=== PATIENT | male | born 1940 | race Caucasian/White ===

== ENCOUNTER 2021-05-10 20:03 | Emergency (ER) | payer OTHER ==
--- NOTE | 2021-05-10 21:34 | EDPHYS ---
Physician Documentation [facility] Name: Marcell Coy Age: 80 yrs Sex: Male : 1940 Arrival Date: 05/10/2021 Time: 20:57 Bed 17 Private MD: ED Physician Taj Bowie HPI: 05/10 21:27 This 80 yrs old Unknown Male presents to ER via Wheelchair with complaints of rn Hemorrhoids. 21:27 The patient presents to the emergency department with bleeding from the rectum/anus, rn that is mild. Onset: The symptoms/episode began/occurred 3 day(s) ago. Context: the patient has a known history of hemorrhoids. Modifying factors: The symptoms are alleviated by nothing, The symptoms are aggravated by bowel movement. Associate signs and symptoms: Pertinent positives: lower GI bleeding, Pertinent negatives: abdominal pain, fever. The patient has experienced similar episodes in the past. The patient has not recently seen a physician. Patient reports 3 days of intermittent hemorrhoidal bleeding. Has had hemorrhoids for very long time. States small amount of blood with bowel movement and wiping. Currently not bleeding. Usually able to stop it with toilet paper and pressure. Denies fever. On Xarelto.. 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 - Social history:: Smoking status: Patient denies any tobacco usage or history of. - Family history:: not pertinent. - Hospitalizations: : No recent hospitalization is reported. ROS: 21:27 Constitutional: Negative for fever, chills, and weight loss, Cardiovascular: Negative rn for chest pain, palpitations, and edema, Respiratory: Negative for shortness of breath, cough, wheezing, and pleuritic chest pain, Abdomen/GI: + bleeding from hemorrhoids Back: Negative for injury and pain, MS/Extremity: Negative for injury and deformity, Skin: Negative for injury, rash, and discoloration. Exam: 21:27 Constitutional: This is a well developed, well nourished patient who is awake, alert, rn and in no acute distress. Cardiovascular: Regular rate and rhythm. No pulse deficits. Respiratory: No increased work of breathing, no retractions or nasal flaring. Abdomen/GI: Soft, non-tender, multiple external hemorrhoids, none of which exhibit signs of thrombosis. No active bleeding, no tear or fissure. No evidence of perirectal abscess. Vital Signs: 21:03 Pulse 57; Resp 18; Temp 97.8; Pulse Ox 98% on R/A; Weight 93.44 kg; Height 5 ft. 10 in. zb (177.80 cm); 21:08 BP 182 / 85; zb 21:33 BP 209 / 87; Pulse 61; Resp 18; Temp 98.6; Pulse Ox 99% on R/A; sh9 21:45 BP 166 / 76; Pulse 65; Resp 18; Pulse Ox 99% on R/A; sh9 21:03 Body Mass Index 29.56 (93.44 kg, 177.80 cm) zb MDM: 21:09 Patient medically screened. rn 21:32 Differential diagnosis: hemorrhoids. Differential diagnosis: fissure. Data reviewed: rn vital signs, nurses notes. Data reviewed: and as a result, I will discharge patient. Counseling: I had a detailed discussion with the patient and/or guardian regarding: the historical points, exam findings, and any diagnostic results supporting the discharge/admit diagnosis, the need for outpatient follow up, to return to the emergency department if symptoms worsen or persist or if there are any questions or concerns that arise at home. Special discussion: I discussed with the patient/guardian in detail that at this point there is no indication for admission to the hospital. It is understood, however, that if the symptoms persist or worsen the patient needs to return immediately for re-evaluation. Based on the history and exam findings, there is no indication for further emergent testing or inpatient evaluation. I discussed with the patient/guardian the need to see the rfid strategist for further evaluation of the symptoms. ED course: No active bleeding from hemorrhoids. No thrombosis. Will prescribe hemorrhoidal cream and suppositories. Will follow up with GI.. Administered Medications: No medications were administered Disposition Summary: 05/10/21 21:33 Discharge Ordered Location: Home rn Problem: chronic rn Symptoms: have improved rn Condition: Stable rn Diagnosis - Unspecified hemorrhoids rn Followup: rn - With: Rodolfo Arzola MD - When: As needed - Reason: Recheck today's complaints, Re-evaluation by your physician Discharge Instructions: - Discharge Summary Sheet rn - Hemorrhoids rn Forms: - Medication Reconciliation Form rn - Thank You Letter rn - Antibiotic rn forensic - Prescription Opioid Use rn Prescriptions: - Anusol-HC 2.5 % Topical cream with perineal applicator - apply 1 applicatorful by TOPICAL route 2 times per day; 1 tube; Refills: 0, rn Product Selection Permitted - Anusol-HC 25 mg Rectal Suppository - insert 1 suppository by RECTAL route every 12 hours As needed; 20 suppository; rn Refills: 0, Product Selection Permitted Signatures: Taj Bowie MD MD rn Brown, Zipporah, RN RN zb
--- NOTE | 2021-05-10 21:34 | ER ---
Nurse's Notes [facility] Name: Marcell Coy Age: 80 yrs Sex: Male : 1940 Arrival Date: 05/10/2021 Time: 20:57 Bed 17 Private MD: Diagnosis: Unspecified hemorrhoids Presentation: 05/10 21:03 Chief complaint: Patient states: is having rectal bleeding from hemorrhoids, reports zb taking xarelto, also reports right sided neck pain that started last night, denies any trauma, reports feeling weak. Coronavirus screen: Vaccine status: Patient reports receiving the 2nd dose of the covid vaccine. Ebola Screen: Patient negative for fever greater than or equal to 101.5 degrees Fahrenheit, and additional compatible Ebola Virus Disease symptoms Patient denies exposure to infectious person. Patient denies travel to an Ebola-affected area in the 21 days before illness onset. No symptoms or risks identified at this time. Initial Sepsis Screen: Does the patient meet any 2 criteria? No. Patient's initial sepsis screen is negative. Does the patient have a suspected source of infection? No. Patient's initial sepsis screen is negative. Risk Assessment: Do you want to hurt yourself or someone else? Patient reports no desire to harm self or others. Onset of symptoms was May 10, 2021. 21:03 Method Of Arrival: Wheelchair zb 21:03 Acuity: TRISH 3 zb Triage Assessment: 21:33 General: Appears in no apparent distress. Behavior is calm, cooperative. Pain: sh9 Complains of pain in abdomen Pain currently is 6 out of 10 on a pain scale. 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 - Social history:: Smoking status: Patient denies any tobacco usage or history of. - Family history:: not pertinent. - Hospitalizations: : No recent hospitalization is reported. Screenin:37 Abuse screen: Denies threats or abuse. Denies injuries from another. Nutritional sh9 screening: No deficits noted. Tuberculosis screening: No symptoms or risk factors identified. Fall Risk None identified. Assessment: 21:36 General: Appears in no apparent distress. Behavior is calm, cooperative. Pain: sh9 Complains of pain in abdomen Pain currently is 6 out of 10 on a pain scale. Neuro: No deficits noted. Neuro: Denies weakness blurred vision dizziness, difficulty swallowing, paresthesias numbness headache photophobia diplopia. Cardiovascular: No deficits noted. Cardiovascular: Denies shortness of breath. Respiratory: No deficits noted. GI: Reports Pain is 6 out of 10 on a pain scale. Patient currently denies nausea, vomiting. GI: Reports rectal bleeding. : No deficits noted. EENT: No deficits noted. Derm: No deficits noted. Musculoskeletal: No deficits noted. Vital Signs: 21:03 Pulse 57; Resp 18; Temp 97.8; Pulse Ox 98% on R/A; Weight 93.44 kg; Height 5 ft. 10 in. zb (177.80 cm); 21:08 BP 182 / 85; zb 21:33 BP 209 / 87; Pulse 61; Resp 18; Temp 98.6; Pulse Ox 99% on R/A; sh9 21:45 BP 166 / 76; Pulse 65; Resp 18; Pulse Ox 99% on R/A; sh9 21:03 Body Mass Index 29.56 (93.44 kg, 177.80 cm) z ED Course: 20:57 Patient arrived in ED. 21:01 Taj Bowie MD is Attending Physician. rn 21:06 Triage completed. zb 21:06 Arm band placed on. b 21:14 Ada Christensen RN is Primary Nurse. sh9 21:33 Rodolfo Arzola MD is Referral Physician. rn 21:37 No provider procedures requiring assistance completed. sh9 21:38 Patient has correct armband on for positive identification. Bed in low position. Call 9 light in reach. 21:46 Patient did not have IV access during this emergency room visit. sh9 Administered Medications: No medications were administered Outcome: 21:33 Discharge ordered by . rn 21:45 Discharged to home ambulatory. sh9 21:45 Condition: stable 21:45 Discharge instructions given to patient, Prescriptions given X 2. 21:46 Patient left the ED. 9 Signatures: Taj Bowie MD MD rn Brown, Zipporah, RN RN Natty Dumont Christensen, Ada, RN RN sh9
[2021-05-10 21:53] VITALS: TEMP 98.6; O2SAT 99
[2021-05-10 21:55] VITALS: BP 166/76
== END 2021-05-10 21:46 | disposition home or self-care (01) ==
LOC: ER 20:03
DX: K64.9 Unspecified hemorrhoids (principal); I10 Essential (primary) hypertension; Z79.01 Long term (current) use of anticoagulants
CPT/HCPCS: 99282

== ENCOUNTER 2021-11-25 00:20 | Inpatient (IN) | payer OTHER ==
[2021-11-25 01:28] LABS: Absolute Lymphocytes (CBC) 1.3 K/uL (0.7-4.9); Hematocrit 36.5 % (39.6-49.0); Lymphocytes % 30.6 % (15.3-44.8); RBC Red Blood Cell Count 4.32 M/uL (4.33-5.43)
[2021-11-25 01:29] LABS: Protime INR 1.31
[2021-11-25 01:44] LABS: Albumin 3.2 g/dL (3.4-5.0); Bilirubin Direct 0.1 mg/dL (0-0.2); Bilirubin Total 0.4 mg/dL (0.2-1.0); Potassium 3.5 mmol/L (3.5-5.1); Protein, Total 7.1 g/dL (6.4-8.2); Troponin High Sensitivity 5.6 pg/mL (<58.9)
[2021-11-25 02:02] LABS: Urine Blood Negative (Negative); Urine Glucose Negative (Negative); Urine Protein Trace (Negative); Urine Specific Gravity 1.025 (1.005-1.030)
[2021-11-25 02:34] LABS: SARS-COV-2 RT PCR NEGATIVE (NEGATIVE)
--- NOTE | 2021-11-25 04:37 | ER ---
Nurse's Notes [facility] Name: Marcell Coy Age: 81 yrs Sex: Male : 1940 Arrival Date: 11/25/2021 Time: 00:20 Bed 17 Private MD: Diagnosis: Dizziness and giddiness;Disequilibrium syndrome;Essential (primary) hypertension Presentation: 11/25 00:29 Chief complaint: EMS states: high blood pressure since November 15, on 11/25 noted some sf1 disequilibrium. Disequilibrium has resolved. Coronavirus screen: Vaccine status: Patient reports receiving the 2nd dose of the covid vaccine. Client denies travel out of the [place] in the last 14 days. Ebola Screen: Patient negative for fever greater than or equal to 101.5 degrees Fahrenheit, and additional compatible Ebola Virus Disease symptoms Patient denies exposure to infectious person. Patient denies travel to an Ebola-affected area in the 21 days before illness onset. Initial Sepsis Screen: Does the patient meet any 2 criteria? No. Patient's initial sepsis screen is negative. Does the patient have a suspected source of infection? No. Patient's initial sepsis screen is negative. Risk Assessment: Do you want to hurt yourself or someone else? Patient reports no desire to harm self or others. Onset of symptoms was November 15, 2021. 00:29 Method Of Arrival: EMS sf1 00:29 Acuity: TRISH 3 sf1 Triage Assessment: 00:32 General: Appears in no apparent distress. Behavior is calm, cooperative. Pain: sf1 Complains of pain in left first toe and Left first toenail. EENT: No deficits noted. Neuro: No deficits noted. Cardiovascular: Reports elevated blood pressure. Respiratory: No deficits noted. GI: No deficits noted. : No deficits noted. 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 - Social history:: Smoking status: Patient denies any tobacco usage or history of. Patient/guardian denies using alcohol, street drugs. Screenin:37 Abuse screen: Denies threats or abuse. Nutritional screening: No deficits noted. sf1 Tuberculosis screening: No symptoms or risk factors identified. Fall Risk None identified. Assessment: 06:23 General: Appears in no apparent distress. Behavior is calm, cooperative, appropriate sf1 for age. 06:23 Reassessment: No changes from previously documented assessment. sf1 07:33 Reassessment: Attempted nurse report. Stated nurse is not yet available and will get ic1 back with me once she is available. Vital Signs: 00:29 BP 174 / 74; Pulse 58; Resp 22; Temp 99(O); Pulse Ox 94% on R/A; Weight 99.79 kg; sf1 Height 5 ft. 10 in. (177.80 cm); Pain 3/10; 01:24 BP 155 / 62; Pulse 63; Resp 16; Pulse Ox 98% on R/A; sf1 01:27 BP 192 / 71; Pulse 67; Resp 16; Pulse Ox 98% on R/A; sf1 01:31 BP 208 / 104; Pulse 73; Resp 22; Pulse Ox 98% ; sf1 02:06 BP 185 / 91; Pulse 60; Resp 16; sf1 06:26 BP 171 / 74; Pulse 62; Resp 18; Pulse Ox 98% on R/A; sf1 07:52 BP 127 / 64; Pulse 55; Resp 16; Pulse Ox 97% on R/A; ic1 00:29 Body Mass Index 31.57 (99.79 kg, 177.80 cm) sf1 ED Course: 00:20 Patient arrived in ED. wm 00:23 Alan Crow MD is Attending Physician. 7 00:28 Digna Barrera RN is Primary Nurse. sf1 00:32 Triage completed. sf1 00:32 Arm band placed on right wrist. EKG completed in triage. Results shown to MD. sf1 00:37 Patient has correct armband on for positive identification. sf1 00:37 Maintain EMS IV. Dressing intact. Good blood return noted. Site clean \\T\\ dry. Gauge \\T\\ sf 1 site: 20G right forearm. 00:38 Warm blanket given. sf1 01:18 PROBNP Sent. sf1 01:18 Protime (+inr) Sent. sf1 01:19 Ptt, Activated Sent. sf1 01:19 Magnesium Sent. sf1 01:19 Basic Metabolic Panel Sent. sf1 01:19 CBC with Diff Sent. sf1 01:19 LFT's Sent. sf1 01:19 Troponin HS Sent. sf1 01:26 CT Head Brain wo Cont In Process Unspecified. EDMS 01:55 XRAY Chest (1 view) In Process Unspecified. EDMS 01:55 Foot Right 3 View XRAY In Process Unspecified. EDMS 02:06 Urine Dipstick-Ancillary Sent. sf1 02:06 COVID-19/FLU A+B/RSV (Document "Date of Onset" if Symptomatic) Sent. sf1 04:34 Kirsten Mcbride MD is Hospitalizing Provider. 7 05:19 Hospitalizing Provider role handed off by Kirsten Mcbride MD [facility] 05:19 Prince Carlton MD is Hospitalizing Provider. 7 06:23 No provider procedures requiring assistance completed. sf1 Administered Medications: No medications were administered Outcome: 04:36 Decision to Hospitalize by Provider. [facility] 07:51 Admitted to Med/surg via stretcher, room 402, Report called to KENNY De La Cruz ic1 07:51 Condition: stable 07:51 Instructed on the need for admit. 08:39 Patient left the ED. ic1 Signatures: Dispatcher [employer] Alan Godfrey MD MD [facility] Natty Dumont Iesha, RN RN ic1 Digna Barrera RN RN sf1
--- NOTE | 2021-11-25 04:37 | EDPHYS ---
Physician Documentation [facility] Name: Marcell Coy Age: 81 yrs Sex: Male : 1940 Arrival Date: 11/25/2021 Time: 00:20 Bed 17 Private MD: ED Physician Alan Crow HPI: 11/25 01:01 This 81 yrs old Unknown Male presents to ER via EMS with complaints of High Blood mh7 Pressure. 01:01 The patient has elevated blood pressure and discovered this at home, with a home mh7 device. Onset: The symptoms/episode began/occurred 10 day(s) ago. Modifying factors: The symptoms are aggravated by nothing, The symptoms are alleviated by prescription meds, GUSTAVO-inhibitor, beta-tim, hydrochlorothiazide. Associated signs and symptoms: Pertinent positives: dizziness, lightheadedness, Pertinent negatives: chest pain, dyspnea, headache, nausea, visual changes, vomiting, weakness. Severity of symptoms: At its worst the blood pressure was 200 mm Hg, in the emergency department the blood pressure is improved, markedly, 154 mm Hg. 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 - Social history:: Smoking status: Patient denies any tobacco usage or history of. Patient/guardian denies using alcohol, street drugs. ROS: 01:01 Constitutional: Negative for fever, chills, and weight loss, Eyes: Negative for injury, mh7 pain, redness, and discharge, ENT: Negative for injury, pain, and discharge, Neck: Negative for injury, pain, and swelling, Cardiovascular: Negative for chest pain, palpitations, and edema, Respiratory: Negative for shortness of breath, cough, wheezing, and pleuritic chest pain, Abdomen/GI: Negative for abdominal pain, nausea, vomiting, diarrhea, and constipation, Back: Negative for injury and pain, : Negative for injury, bleeding, discharge, and swelling, MS/Extremity: Negative for injury and deformity, Skin: Negative for injury, rash, and discoloration, Neuro: Negative for headache, weakness, numbness, tingling, and seizure, Psych: Negative for depression, anxiety, suicide ideation, homicidal ideation, and hallucinations, Allergy/Immunology: Negative for hives, rash, and allergies, Endocrine: Negative for neck swelling, polydipsia, polyuria, polyphagia, and marked weight changes, Hematologic/Lymphatic: Negative for swollen nodes, abnormal bleeding, and unusual bruising. Exam: 01:01 Constitutional: This is a well developed, well nourished patient who is awake, alert, mh7 and in no acute distress. Head/Face: Normocephalic, atraumatic. Eyes: Pupils equal round and reactive to light, extra-ocular motions intact. Lids and lashes normal. Conjunctiva and sclera are non-icteric and not injected. Cornea within normal limits. Periorbital areas with no swelling, redness, or edema. Neck: Trachea midline, no thyromegaly or masses palpated, and no cervical lymphadenopathy. Supple, full range of motion without nuchal rigidity, or vertebral point tenderness. No Meningismus. Chest/axilla: Normal chest wall appearance and motion. Nontender with no deformity. No lesions are appreciated. 01:01 Respiratory: Lungs have equal breath sounds bilaterally, clear to auscultation and percussion. No rales, rhonchi or wheezes noted. No increased work of breathing, no retractions or nasal flaring. Abdomen/GI: Soft, non-tender, with normal bowel sounds. No distension or tympany. No guarding or rebound. No evidence of tenderness throughout. Back: No spinal tenderness. No costovertebral tenderness. Full range of motion. Skin: Warm, dry with normal turgor. Normal color with no rashes, no lesions, and no evidence of cellulitis. Psych: Awake, alert, with orientation to person, place and time. Behavior, mood, and affect are within normal limits. 01:01 Cardiovascular: Rate: bradycardic, Rhythm: regular, Pulses: no pulse deficits are appreciated, Heart sounds: normal, normal S1and S2, Edema: is not appreciated, JVD: is not appreciated. 01:01 Neuro: Orientation: is normal, Mentation: is normal, Memory: is normal, Cranial nerves: grossly normal, Cerebellar function: is grossly normal, Motor: is normal, Sensation: is normal, Gait: not tested. Deep tendon reflexes are normal, Babinski testing is normal, seizure activity, is not displayed by the patient, Abnormal movements: there are no abnormal movements. 01:01 ECG was reviewed by the Attending Physician. [facility] Vital Signs: 00:29 BP 174 / 74; Pulse 58; Resp 22; Temp 99(O); Pulse Ox 94% on R/A; Weight 99.79 kg; sf1 Height 5 ft. 10 in. (177.80 cm); Pain 3/10; 01:24 BP 155 / 62; Pulse 63; Resp 16; Pulse Ox 98% on R/A; sf1 01:27 BP 192 / 71; Pulse 67; Resp 16; Pulse Ox 98% on R/A; sf1 01:31 BP 208 / 104; Pulse 73; Resp 22; Pulse Ox 98% ; sf1 02:06 BP 185 / 91; Pulse 60; Resp 16; sf1 06:26 BP 171 / 74; Pulse 62; Resp 18; Pulse Ox 98% on R/A; sf1 07:52 BP 127 / 64; Pulse 55; Resp 16; Pulse Ox 97% on R/A; ic1 00:29 Body Mass Index 31.57 (99.79 kg, 177.80 cm) sf1 MDM: 04:34 Differential diagnosis: hypertensive crisis, Malignant HTN, CVA, intracerebral mh7 hemorrhage. Data reviewed: vital signs, nurses notes, EMS record, old medical records, lab test result(s), cardiac enzymes, CBC, electrolytes, Flu: negative urinalysis, EKG, radiologic studies, CT scan, plain films. Data interpreted: Pulse oximetry: on room air is 98 %. Interpretation: normal. Counseling: I had a detailed discussion with the patient and/or guardian regarding: the historical points, exam findings, and any diagnostic results supporting the discharge/admit diagnosis, the presence of at least one elevated blood pressure reading (>120/80) during this emergency department visit, lab results, radiology results, the need for further work-up and treatment in the hospital. Response to treatment: the patient's symptoms have mildly improved after treatment. 04:36 Patient medically screened. [facility] 11/25 01:00 Order name: Basic Metabolic Panel; Complete Time: 53 [facility] 11/25 01:00 Order name: CBC with Diff; Complete Time: [facility] 11/25 01:00 Order name: LFT's; Complete Time: : [facility] 11/25 01:00 Order name: Troponin HS; Complete Time: [facility] 11/25 01:00 Order name: Magnesium; Complete Time: [facility] 11/25 01:00 Order name: Protime (+inr); Complete Time: : [facility] 11/25 01:00 Order name: XRAY Chest (1 view) [facility] 11/25 01:00 Order name: EKG; Complete Time: : [facility] 11/25 01:00 Order name: Ptt, Activated; Complete Time: [facility] 11/25 01:00 Order name: PROBNP; Complete Time: [facility] 11/25 01:01 Order name: Foot Right 3 View XRAY [facility] 11/25 01:01 Order name: CT Head Brain wo Cont [facility] 11/25 01:06 Order name: COVID-19/FLU A+B/RSV (Document "Date of Onset" if Symptomatic); Complete [facility] Time: 11/25 02:02 Order name: Urine Dipstick-Ancillary [facility] 11/25 01:00 Order name: Cardiac monitoring; Complete Time: 01:00 [facility] 11/25 01:00 Order name: EKG - Nurse/Tech; Complete Time: 01: [facility] 11/25 01:00 Order name: IV Saline Lock; Complete Time: 01: [facility] 11/25 01:00 Order name: Labs collected and sent; Complete Time: 01: [facility] 11/25 01:00 Order name: O2 Per Protocol; Complete Time: 01: [facility] 11/25 01:00 Order name: O2 Sat Monitoring; Complete Time: 01: [facility] 11/25 01:01 Order name: Urine Dipstick-Ancillary (obtain specimen); Complete Time: 02:06 [facility] 11/25 01:01 Order name: Orthostatics; Complete Time: 01:37 7 EC:01 Rate is 58 beats/min. Rhythm is regular, Sinus bradycardia with 1st degree heart block. 7 QRS [place] is Normal. CA interval is prolonged at 238 msec. QRS interval is normal. QT interval is normal. No Q waves. T waves are Normal. No ST changes noted. Clinical impression: 1st degree heart block and Sinus bradycardia. Administered Medications: No medications were administered Disposition Summary: 11/25/21 04:36 Hospitalization Ordered Hospitalization Status: Inpatient Admission [facility] Location: Telemetry/MedSurg (Inpatient) [facility] Condition: Stable [facility] Problem: new mh7 Symptoms: have improved mh Bed/Room Type: Standard [facility] Provider: Prince Bianka(11/25/21 05:19) [facility] Room Assignment: [facility](11/25/21 06:03) mw Diagnosis - Dizziness and giddiness 7 - Disequilibrium syndrome 7 - Essential (primary) hypertension [facility] Forms: - Medication Reconciliation Form 7 - SBAR form [facility] Signatures: Dispatcher [employer] EDMS Brittany Shaffer RN RN mw Holmes, Maurice, MD MD 7 Fillers, KENNY Sawyer RN sf1 Corrections: (The following items were deleted from the chart) 05:19 04:36 [place] 7 7 06:03 04:36 7 mw
--- NOTE | 2021-11-25 05:15 | P.HP ---
Certification for Inpatient Patient admitted to: Inpatient With expected LOS: <2 Midnights Patient will require the following post-hospital care: None Practitioner: I am a practitioner with admitting privileges, knowledge of patient current condition, hospital course, and medical plan of care. Services: Services provided to patient in accordance with Admission requirements found in Title 42 Section 412.3 of the Code of Federal Regulations Patient History Date of Service: 11/25/21 Primary Care Provider: Lexi Palacios APRN Reason for admission: Dizziness, Hypertension History of Present Illness: Patient is an 81-year-old male with hypertension and venous insufficiency on Xarelto who presented to the ED via EMS after recording a blood pressure of 200/100 at home and experiencing some dizziness. Patient states his blood pressure has been fluctuating over the past couple of days. He states has been experiencing some dizziness/lightheadedness when he stands up from a sitting position. He denies falling. Patient has a cane that he says he sometimes uses to ambulate with. In the ED, head CT was negative and labs within normal limits. Patient's blood pressure in the ED ranged from 155/62 to 208/104. Patient was slightly ataxic when assessing his gait. Patient takes lisinopril/hydrochlorothiazide and metoprolol for his blood pressure. He sees Dr. Mccloud and Dr. Velez. Patient is also complaining of left great toe pain. He denies history of gout. X-ray in the ED was negative. Patient was not g iven any medications in the ED. He states he is feeling okay at this time. ED provider would like to admit patient for further evaluation of dizziness/disequilibrium and hypertension. Home medications list reviewed: Yes - Past Medical/Surgical History Diabetic: No -: Hypertension -: Venous Insufficiency -: Hyperlipidemia -: Appendectomy -: Back Surgery Psychosocial/ Personal History: Patient lives at home with his niece and nephew. - Family History Mother -: Stroke Father -: Lung disease Brother -: Heart disease, Lung disease, Cancer - Social History Smoking Status: Former smoker Alcohol use: No CD- Drugs: No Caffeine use: Yes Place of Residence: Home Review of Systems General: As per HPI Cardiovascular: Light Headedness Musculoskeletal: Foot Pain (Right big toe pain ) Integumentary: As per HPI Physical Examination - Physical Exam General: Alert, In no apparent distress, Oriented x3 HEENT: Atraumatic, PERRLA, Mucous membr. moist/pink, EOMI, Sclerae nonicteric Neck: Supple, 2+ carotid pulse no bruit, No LAD, Without JVD or thyroid abnormality Respiratory: Clear to auscultation bilaterally, Normal air movement Cardiovascular: Regular rate/rhythm, Normal S1 S2 Gastrointestinal: Normal bowel sounds, No tenderness Musculoskeletal: No tenderness Integumentary: No rashes, Other (dusky, venous insufficiency RLE ) Neurological: Normal speech, Normal strength at 5/5 x4 extr, Normal tone, Normal affect, Abnormal gait (slightly ataxic) - Studies Laboratory Data (last 24 hrs) 11/25/21 01:09: PT 14.5 H, INR 1.31, APTT 34.0 11/25/21 01:09: WBC 4.40, Hgb 11.7 L, Hct 36.5 L, Plt Count 159 11/25/21 01:09: Sodium 140, Potassium 3.5, BUN 21 H, Creatinine 1.20, Glucose 132 H, Magnesium 2.0, Total Bilirubin 0.4, AST 17, ALT 17, Alkaline Phosphatase 77 Assessment and Plan - Problems (Diagnosis) (1) Disequilibrium Current Visit: Yes Status: Acute (2) Hypertension Current Visit: Yes Status: Acute Qualifiers: Hypertension type: primary hypertension Qualified Code(s): I10 - Essential (primary) hypertension (3) HLD (hyperlipidemia) Current Visit: Yes Status: Chronic Qualifiers: Hyperlipidemia type: mixed hyperlipidemia Qualified Code(s): E78.2 - Mixed hyperlipidemia (4) Venous insufficiency of both lower extremities Current Visit: Yes Status: Chronic (5) Dizziness of unknown cause Current Visit: Yes Status: Acute (6) Great toe pain Current Visit: Yes Status: Acute Qualifiers: Laterality: right Qualified Code(s): M79.674 - Pain in right toe(s) - Plan -Patient will be admitted with Dr. Anthony consulting to further evaluate dizziness/disequilibrium. Head CT, EKG, labs negative in the ED. -Symptoms could be blood pressure related. orthostatic vitals ordered -We will continue patient's home medication for blood pressure and include hydralazine as needed -Patient has chronic venous insufficiency and has stents placed in his legs. He takes Xarelto daily. We will continue -Patient is reporting left great toe pain. X-ray was negative. he denies history of gout. toe appears swollen and erythematous. Ordered uric acid, CRP, ESR -Patient's heart rate and O2 saturation has remained WNL -Patient denies any history of kidney disease, diabetes, lung disease, or any other heart problems DVT PPx: Xarelto Code: Full Discharge Plan: Home Plan to discharge in: 48 Hours - Advance Directives Does patient have a Living Will: No Does patient have a Durable POA for Healthcare: Yes - Code Status/Comfort Care Code Status Assessed: Yes (Full) Critical Care: No Time Spent Managing Pts Care (In Minutes): 70
[2021-11-25 07:23] VITALS: BMI 31.5
[2021-11-25] MEDS ORDERED: ONDANSETRON 4 MG/2 ML VIAL IV PRN (07:49)
[2021-11-25] MEDS ORDERED: ACETAMINOPHEN 500 MG TAB PO PRN (07:49)
[2021-11-25 08:51] VITALS: O2SAT 97
[2021-11-25] MEDS ORDERED: RIVAROXABAN 10 MG TABLET PO SCH (09:00)
[2021-11-25 09:49] LABS: C-Reactive Protein 7.98 mg/L (<3.00); Uric Acid 7.7 mg/dL (3.5-7.2)
--- NOTE | 2021-11-25 12:16 | RAD REPORT ---
EXAM DESCRIPTION: MRI - Brain W/Wo Cont - 11/25/2021 12:04 pm CLINICAL HISTORY: dizziness Headache, drowsiness COMPARISON: Head Brain Wo Cont dated 11/25/2021 TECHNIQUE: Multi-sequence, multiplanar MR imaging of the brain was performed with contrast. FINDINGS: No intracranial hemorrhage, hydrocephalus, or extra-axial fluid collection. No edema or sh ift of midline structures. Mild moderate periventricular and deep white matter chronic microvascular ischemic changes.A 22 x 16 mm mass is present in the sella turcica.This mass shows avid enhancement a fter contrast. DWI is negative for acute CVA. Moderate mucoperiosteal thickening is present in the left maxillary antrum and left ethmoid air cells . The paranasal sinuses and mastoids otherwise clear. 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 No acute CVA identified.
[2021-11-25] MEDS ORDERED: HYDRALAZINE HCL 20 MG/ML VIAL IV STA (12:46)
[2021-11-25] MEDS ORDERED: HYDRALAZINE HCL 20 MG/ML VIAL IV PRN (12:50)
[2021-11-25] MEDS ORDERED: cloNIDine HCL 0.1 MG TAB PO ONE (12:50)
--- NOTE | 2021-11-25 14:26 | RAD REPORT ---
EXAM DESCRIPTION: CT of the head without contrast CLINICAL HISTORY: DIZZINESS COMPARISON: None available TECHNIQUE: Axial CT of the head obtained from the skull apex to the skull base without contrast. Thi s exam was performed according to our departmental dose-optimization program, which includes automate d exposure control, adjustment of the mA and/or kV according to patient size and/or use of iterative reconstruction technique. FINDINGS: No acute intracranial hemorrhage identified. No mass, mass effect, shift of the midline, a bnormal extra-axial fluid collection or CT evidence of acute ischemic change identified. The ventricu lar system and sulcal spaces are mildly enlarged compatible with mild cerebral atrophy. Scattered a reas of hypodensity throughout the supratentorial white matter are nonspecific and may be related to chronic small vessel ischemic change. Mucosal thickening of the paranasal sinuses. Mastoid air cells are well aerated. No skull fracture id entified. Visualized orbits and globes are unremarkable. Atherosclerotic calcification of the intracr anial internal carotid arteries. IMPRESSION: 1. No acute intracranial abnormality by CT criteria. Electronically signed by: Sulaiman Acevedo 11/25/2021 2:49 AM CDT Due to temporary technical issues with the PACS/Fluency reporting system, reports are being signed by the in house radiologist without review as a courtesy to ensure prompt reporting. The interpreting r adiologist is fully responsible for the content of the report.
--- NOTE | 2021-11-25 15:09 | RAD REPORT ---
EXAM DESCRIPTION: XR Chest, 1 View CLINICAL HISTORY: Dizziness TECHNIQUE: Frontal view of the chest. COMPARISON: No relevant prior studies available. FINDINGS: Lungs: Coarsened interstitial markings. No focal consolidation. Pleural space: Unremarkable. No pneumothorax. Heart: Unremarkable. No cardiomegaly. Mediastinum: Unremarkable. Bones/joints: Unremarkable. Vasculature: Thoracic aortic atherosclerosis. IMPRESSION: No acute disease. Electronically signed by: Brenda Marr MD 11/25/2021 3:12 AM CDT Due to temporary technical issues with the PACS/Fluency reporting system, reports are being signed by the in house radiologist without review as a courtesy to ensure prompt reporting. The interpreting r adiologist is fully responsible for the content of the report.
--- NOTE | 2021-11-25 15:25 | RAD REPORT ---
EXAM DESCRIPTION: XR Right Foot Complete, 3 Views CLINICAL HISTORY: PAIN TECHNIQUE: Frontal, lateral and oblique views of the right foot. COMPARISON: No relevant prior studies available. FINDINGS: Bones/joints: Osseous structures are osteopenic. No acute or remote fracture deformity. No osseous destruction or erosion. Mild multifocal degenerative changes. No dislocation. Soft tissues: Unremarkable. No radiopaque foreign body. IMPRESSION: No acute abnormality. Electronically signed by: Brenda Marr MD 11/25/2021 3:17 AM CDT Due to temporary technical issues with the PACS/Fluency reporting system, reports are being signed by the in house radiologist without review as a courtesy to ensure prompt reporting. The interpreting r adiologist is fully responsible for the content of the report.
--- NOTE | 2021-11-25 20:10 | P.PN ---
Date of Service: 11/25/21 Patient seen and examined. He states his dizziness is better. Blood pressure still elevated. 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 Plan: Resumed home antihypertensives. Hydralazine as needed for BP spike. Neurology consulted to assist with management. Check pituitary hormones-FSH, TSH, ACTH. Prolactin.
[2021-11-25] MEDS ORDERED: ATORVASTATIN 40 MG TAB PO SCH (21:00)
[2021-11-25] MEDS: cilostazoL 100 MG TAB PO SCH (21:43)
[2021-11-25] MEDS: METOPROLOL TAR 50 MG TAB PO SCH (21:44)
[2021-11-25] MEDS ORDERED: DOCUSATE NA 100 MG CAP PO ONE (22:05)
--- NOTE | 2021-11-25 23:33 | CON ---
Reason For Consultation: Consultation called because of dizziness. History Of Present Illness: Mr. Coy is an 81-year-old patient with hypertension, venous insufficie ncy, dyslipidemia who comes to [facility] after multiple episodes of falling when trying to get up from a chair. He said over the weekend he was at a cookout and he was sitting and he tried to get up and started falling backwards. He said prior to that, about a week previously, he would have episodes of some dizziness and felt as though he was moving and would have to hold onto nearby objec ts to prevent from a tendency to fall. He says that at this point, he still has this lightheadedness and dizziness and he feels like the world may be tilting [id number]. At [facility], he d id have very elevated blood pressures ranging up to 208/104 and he was noted to be very ataxic and am bulating. He has head CT scan that was initially read as no acute intracranial abnormalities. There was, however, findings of small vessel ischemic disease that may be mild in nature. However, his [facility] MRI is done subsequently identified a 26 x 16 mm enhancing mass in the sella turcica, likely repr esenting a pituitary macroadenoma. His complete blood count, differential essentially unremarkable. ESR elevated at 22. Coagulation panel is showing INR 1.31. Chemistries essentially unremarkable. Glucose 132, uric acid elevated at 7.7. He does say he has gout with a toe that is "acting up." His C-reactive protein is elevated at 7.98. Urinalysis showed trace protein. COVID-19 test is negative . Influenza test is negative. RSV RNA test negative. Chest x-ray showed no acute disease. Past Medical History: As noted. Past Surgical History: Appendectomy and back surgery. Family History: Stroke in mother and lung disease and father along with brother having heart disease , lung disease, and cancer. Social History: No alcohol, tobacco, or IV drug use. Current Medications: Lipitor 40 mg at bedtime, Pletal 100 mg twice daily, Apresoline 10 mg IV as nee ded, hydrochlorothiazide 12.5 mg daily, Prinivil 10 mg daily, Lopressor 100 mg twice daily, Xarelto 2 0 mg daily. Review of Systems: Mr. Coy denies, aside from mentioned, any fevers, chills, nausea, or vomiting. He does have dizzin ess, tendency to fall [id number]. No weight change. No active psychiatric issues. No gastrointes tinal or genitourinary issues. No dermatological issues. Physical Examination: Vital Signs: Blood pressure 148/66, pulse 81, respiratory rate 16, temp 97.1, oxygen saturation 99% on room air. Weight 219 pounds. Height 5 feet 10 inches. General: Mr. Coy is resting in bed. He is in no acute distress. HEENT: He is normocephalic, atraumatic. Sclerae anicteric. Oropharynx is pink and moist. Neck: Supple. Chest: Clear. Heart: Regular. Extremities: No significant edema or cyanosis. Please note, his right foot does have significant ve nous stasis changes more than the left and some swelling in the right big toe and on the dorsum of th e right foot. Gait, he did have cramping in the right and left lower extremity when trying to ambula te. 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 He does not have focal findings and no visual field deficits identified. He does have esperanza rbid uncontrolled hypertension and has gout. He has an elevated ESR and CRP. Plan: 1.He should be evaluated by Neurosurgery for resection of the benign tumor. 2.Continue with aggressive management of his comorbid conditions. 3.Lipitor 40 mg at bedtime, Prinivil 10 mg daily, Lopressor 100 mg daily, and Xarelto 20 mg daily fo r stroke risk reduction. 4.The patient was given information to contact Dr. Rob Ralph, neurosurgeon for further evaluation and potential surgical resection. ZAKIYA/VIANCA Voice ID: [id number] Report ID: [id number]
[2021-11-26 03:51] LABS: Absolute Lymphocytes (CBC) 1.5 K/uL (0.7-4.9); Hematocrit 35.4 % (39.6-49.0); Lymphocytes % 36.2 % (15.3-44.8); MPV 6.9 fL (7.6-11.3); RBC Red Blood Cell Count 4.29 M/uL (4.33-5.43)
[2021-11-26 04:09] LABS: Albumin 3.2 g/dL (3.4-5.0); Bilirubin Total 0.8 mg/dL (0.2-1.0); Potassium 3.9 mmol/L (3.5-5.1); Thyroid Stimulating Hormone 1.13 uIU/mL (0.360-3.740)
[2021-11-26] MEDS ORDERED: COSYNTROPIN 0.25 MG VIAL IV ONE (08:10)
[2021-11-26] MEDS ORDERED: hydroCHLOROthiazide 12.5 MG CAP PO SCH (09:00)
[2021-11-26] MEDS ORDERED: lisinopriL 10 MG TAB PO SCH (09:00)
[2021-11-26] MEDS ORDERED: RIVAROXABAN 20 MG TABLET PO SCH (09:00)
[2021-11-26] MEDS ORDERED: HOME MED 1 EA UNK (Lisinopril/Hydrochlorothiazide [Lisinopril-Hctz 10-12.5 Mg Tab] Tablet) PO SCH (09:00)
[2021-11-26] MEDS: METOPROLOL TAR 50 MG TAB PO SCH (10:18)
[2021-11-26] MEDS: cilostazoL 100 MG TAB PO SCH (10:20)
[2021-11-26 12:12] VITALS: BP 138/63; TEMP 98.1
--- NOTE | 2021-11-26 14:33 | RAD REPORT ---
EXAM DESCRIPTION: CT - Abdomen Pelvis W/Wo Contrast - 11/26/2021 2:16 pm CLINICAL HISTORY: EVALUATED for adrenal tumor Abdominal pain COMPARISON: No comparisons TECHNIQUE: Axial non-contrast CT imaging was performed. Following this, triphasic contrast enhanced imaging through the abdomen and pelvis was performed with coronal and sagittal reformatted images. All CT scans are performed using dose optimization technique as appropriate and may include automated exposure control or mA/KV adjustment according to patient size. FINDINGS: The lower lung flores are clear. Small hiatal hernia. The liver, spleen, pancreas and adrenal glands are normal. Specifically, no adrenal mass is present. No urinary tract stones are seen. Benign cysts are present in both kidneys. No hydronephrosis. No bowel obstruction, free fluid or abscess. Appendectomy. Atherosclerosis of the abdominal aorta is seen with mild aneurysm measuring 4.2 cm of the infrarenal abdominal aorta. Diffuse osteopenia is seen. Multiple wedge deformities are present, likely chronic. IMPRESSION: No adrenal mass is evident.
--- NOTE | 2021-11-26 15:57 | P.DS ---
Admission Date: 11/25/21 Discharge Date: 11/26/21 Primary Care Provider: Lexi Palacios APRN Disposition: ROUTINE DISCHARGE Discharge Condition: GOOD Reason for Admission: Dizziness, Hypertension Hospital Course: Patient was admitted for uncontrolled hypertension and dizziness. His BP normalized throughout this hospital stay. He was found to have a large pituitary adenoma. CT A/P did not reveal any adrenal mass to suggest Pheochromocytoma. He will need to follow up with Neurosurgery. Information hand to patient by Dr. Anthony, the Neurologist. Vital Signs/Physical Exam: Temp Pulse Resp BP Pulse Ox 98.1 F 63 18 138/63 95 11/26/21 12:00 11/26/21 12:00 11/26/21 12:00 11/26/21 12:00 11/26/21 12:00 General: Alert, In no apparent distress, Cooperative HEENT: Atraumatic, Normocephalic Respiratory: Normal air movement Cardiovascular: Regular rate/rhythm, Normal S1 S2 Gastrointestinal: Soft and benign, Non-distended Musculoskeletal: No clubbing, No swelling, No contractures Neurological: Normal speech, Normal affect Laboratory Data at Discharge: WBC 4.10 K/uL (4.3-10.9) L 11/26/21 03:18 Hgb 11.6 g/dL (13.6-17.9) L 11/26/21 03:18 Hct 35.4 % (39.6-49.0) L 11/26/21 03:18 Plt Count 168 K/uL (152-406) 11/26/21 03:18 PT 14.5 SECONDS (9.5-12.5) H 11/25/21 01:09 INR 1.31 11/25/21 01:09 APTT 34.0 SECONDS (24.3-36.9) 11/25/21 01:09 Sodium 137 mmol/L (136-145) 11/26/21 03:18 Potassium 3.9 mmol/L (3.5-5.1) 11/26/21 03:18 BUN 21 mg/dL (7-18) H 11/26/21 03:18 Creatinine 1.15 mg/dL (0.55-1.3) 11/26/21 03:18 Glucose 106 mg/dL (74-106) 11/26/21 03:18 Uric Acid 7.7 mg/dL (3.5-7.2) H 11/25/21 09:00 Magnesium 2.0 mg/dL (1.8-2.4) 11/25/21 01:09 Total Bilirubin 0.8 mg/dL (0.2-1.0) 11/26/21 03:18 AST 15 U/L (15-37) 11/26/21 03:18 ALT 17 U/L (12-78) 11/26/21 03:18 Alkaline Phosphatase 84 U/L (45-117) 11/26/21 03:18 Triglycerides 119 mg/dL (<150) 11/26/21 03:18 Cholesterol 136 mg/dL (<200) 11/26/21 03:18 HDL Cholesterol 42 mg/dL (40-60) 11/26/21 03:18 Cholesterol/HDL Ratio 3.24 11/26/21 03:18 Home Medications: Atorvastatin Calcium [Lipitor] 40 mg PO BEDTIME 11/25/21 Lisinopril/Hydrochlorothiazide [Lisinopril-Hctz 10-12.5 mg Tab] 1 tab PO DAILY 11/25/21 Metoprolol Tartrate [Lopressor] 100 mg PO BID 11/25/21 Rivaroxaban [Xarelto] 20 mg PO DAILY 11/25/21 cilostazoL [Pletal*] 100 mg PO BID 11/25/21 Physician Discharge Instructions: And will need to follow-up with Dr. Rob Ralph from neurosurgery for further evaluation of his pituitary adenoma. Followup: Unknown,U [Primary Care Provider] -
--- NOTE | 2021-11-27 08:59 | EEG ---
CHART: [id number] TEST ID#: [id number] DATE OF STUDY: 11/25/2021 THE EEG WAS RECORDED PORTABLE IN THE PATIENT'S ROOM ON A 17 CHANNEL MACHINE. ELECTRODES WERE APPLIED IN THE USUAL MANNER USING THE INTERNATIONAL 10-20 SYSTEM. THE WAKING BACKGROUND RHYTHM IN THIS RECORD CONSISTS OF FAIRLY WELL DEVELOPED AND FAIRLY WELL ORGANIZED WAVES OF 7.5 HZ., MAXIMAL IN THE POSTERIOR HEAD REGIONS WHICH ATTENUATE NORMALLY WITH EYE OPENING. LOW-VOLTAGE 15-18 HZ ACTIVITY IS EXPRESSED IN THE FRONTAL REGIONS. MODEATE VOLTAGE 1.5-3HZ MIXED WITH 4-6 HZ ACTIVITY IS EXPRESSED IN THE FRONTAL AND CENTRAL REGIONS. THERE ARE NO FOCAL OR LATERALIZING FEATURES. NO EPILEPTIFORM ACTIVITY APPEARS. SLEEP DID NOT OCCUR. HYPERVENTILATION WAS NOT PERFORMED. PHOTIC STIMULATION PRODUCED NO DRIVING BILATERALLY. IMPRESSION: THIS IS A MILDLY ABNORMAL EEG DUE TO A MILDLY SLOW BACKGROUND. THIS IS A NON-SPECIFIC FINDING INDICATING THE PRESENCE OF A MILD DIFFUSE DISTURBANCE IN CEREBRAL FUNCTION.
== END 2021-11-26 17:39 | disposition home or self-care (01) | DRG 644 ==
LOC: ER 00:20 → ERHOLD 05:15 → 4TH 06:21
PROVIDERS: ADMIT Internal Medicine; ATTEND Internal Medicine
DX: D35.2 Benign neoplasm of pituitary gland (principal); E87.2 Acidosis; I44.0 Atrioventricular block, first degree; E87.8 Other disorders of electrolyte and fluid balance, not elsewhere classified; I10 Essential (primary) hypertension; M10.9 Gout, unspecified; I87.2 Venous insufficiency (chronic) (peripheral); M79.674 Pain in right toe(s); R00.1 Bradycardia, unspecified; Z87.891 Personal history of nicotine dependence; Z79.899 Other long term (current) drug therapy; Z79.01 Long term (current) use of anticoagulants; Z20.822 Contact with and (suspected) exposure to COVID-19
CPT/HCPCS: 0241U; 36415; 70450; 70553; 71045; 74178; 80048; 80053; 80061; 80076; 81003; 82024; 82533; 83001; 83003; 83735; 83880; 84146; 84439; 84443; 84484; 84550; 85025; 85610; 85652; 85730; 86140; 93005; 95819; 97116; 97161; 97530; 99285; A9577; J0360; J0834; Q9967

== ENCOUNTER 2023-03-18 11:19 | Inpatient (IN) | payer OTHER ==
[2023-03-18 11:53] LABS: Absolute Lymphocytes (CBC) 1.4 K/uL (0.7-4.9); Hematocrit 30.6 % (39.6-49.0); Lymphocytes % 31.5 % (15.3-44.8); MCV 86.3 fL (80-100); MPV 6.5 fL (7.6-11.3); RBC Red Blood Cell Count 3.54 M/uL (4.33-5.43)
[2023-03-18 11:58] LABS: Protime INR 2.12
[2023-03-18 12:09] LABS: Albumin 3.5 g/dL (3.4-5.0); Bilirubin Total 0.3 mg/dL (0.2-1.0); Potassium 4.5 mEq/L (3.5-5.1); Protein, Total 7.4 g/dL (6.4-8.2)
--- NOTE | 2023-03-18 12:35 | RAD REPORT ---
EXAM DESCRIPTION: CT - Abdomen Pelvis W Contrast - 03/18/2023 12:21 pm CLINICAL HISTORY: rectal bleeding, abd pain COMPARISON: Abdomen Pelvis W/Wo Contrast dated 11/26/2021 TECHNIQUE: Thin cut axial CT imaging of the abdomen and pelvis was performed following intravenous a dministration of 75 mL Isovue 300. Multiplanar reformats were generated and reviewed. All CT scans are performed using dose optimization technique as appropriate and may include automated exposure control or mA/KV adjustment according to patient size. FINDINGS: No suspicious findings in the lung bases. Mild pericardial effusion. The liver, spleen, adrenal glands, and pancreas show no suspicious findings. Gallbladder and biliary tree are also without suspicious finding. Symmetric renal function is seen with no hydronephrosis or suspicious renal mass. Bilateral renal cys ts, largest measuring 2.7 centimeter are stable since the prior CT. No dilated bowel loops or bowel wall thickening. No free air, free fluid or inflammatory stranding. N o hernia, mass or bulky lymphadenopathy. The urinary bladder is without significant finding. Advanced atherosclerotic changes of the abdominal aorta in its major branches. Bilateral femoral sten ts present. Fusiform aneurysmal dilation of the infrarenal abdominal aorta, with stable aneurysm sac diameters, measuring 4.3 x 4.2 centimeter, allowing for differences in technique. Slight increase of mural thrombosis along the right lateral and posterior ndiaye, without findings to suggest an unstable thrombus. No suspicious bony findings. Multilevel superior endplate compression deformities spanning the lower thoracic and lumbar spine, unchanged. IMPRESSION: No acute intra-abdominal process. 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 No findings to suggest an unstab le thrombus at this time. Other stable findings as above
--- NOTE | 2023-03-18 12:56 | ER ---
Nurse's Notes [facility] Name: Marcell Coy Age: 82 yrs Sex: Male : 1940 Arrival Date: 03/18/2023 Time: 11:19 Bed 2 Private MD: Diagnosis: GI Bleed/ Gastrointestinal hemorrhage, unspecified;Anemia, unspecified Presentation: 03/18 11:25 Chief complaint: Patient states: C/O blood in stool. Coronavirus screen: At this time, ld1 the client does not indicate any symptoms associated with coronavirus-19. Ebola Screen: No symptoms or risks identified at this time. Initial Sepsis Screen: Does the patient meet any 2 criteria? No. Patient's initial sepsis screen is negative. Does the patient have a suspected source of infection? No. Patient's initial sepsis screen is negative. Risk Assessment: Do you want to hurt yourself or someone else? Patient reports no desire to harm self or others. Onset of symptoms was March 18, 2023 at 11:26. 11:25 Method Of Arrival: Ambulatory ld1 11:25 Acuity: TRISH 3 ld1 Triage Assessment: 11:26 General: Appears in no apparent distress. comfortable, Behavior is calm, cooperative, ld1 appropriate for age. Pain: Denies pain. EENT: No signs and/or symptoms were reported regarding the EENT system. Neuro: Level of Consciousness is awake, alert, obeys commands, Oriented to person, place, time, situation. Cardiovascular: Capillary refill < 3 seconds Patient's skin is warm and dry. Respiratory: Airway is patent Respiratory effort is even, unlabored. GI: Abdomen is round non-distended, Reports bloody stool. : No signs and/or symptoms were reported regarding the genitourinary system. Derm: No signs and/or symptoms reported regarding the dermatologic system. Musculoskeletal: No signs and/or symptoms reported regarding the musculoskeletal system. Historical: - Allergies: : No Known Allergies; ld1 - Home Meds: 13:15 Xarelto 20 mg oral tablet 1 tab daily [Active]; hydrochlorothiazide 12.5 mg Oral tablet nj1 1 tabs daily [Active]; lisinopril 10 mg Oral tablet 1 tabs daily [Active]; metoprolol tartrate 100 mg Oral tablet 1 tab 2 times per day [Active]; atorvastatin 40 mg oral tablet 1 tab every day at bedtime [Active]; cilostazol 100 mg oral tablet 1 tab 2 times per day [Active]; - PMHx: 11:26 "bad veins in legs"; Hypertensive disorder; ld1 - PSHx: 11:26 Appendectomy; ld1 - Immunization history:: Adult Immunizations up to date, Client reports receiving the 2nd dose of the Covid vaccine. - Social history:: Smoking status: Patient denies any tobacco usage or history of. Patient/guardian denies using alcohol. - Family history:: not pertinent. - Hospitalizations: : No recent hospitalization is reported. Screenin:48 [facility] ED Fall Risk Assessment (Adult) History of falling in the last 3 months, [facility] including since admission No falls in past 3 months (0 pts) Confusion or Disorientation No (0 pts) Intoxicated or Sedated No (0 pts) Impaired Gait No (0 pts) Mobility Assist Device Used Yes (1 pt) Altered Elimination No (0 pt) Score/Fall Risk Level 0 - 2 = Low Risk Oriented to surroundings, Maintained a safe environment, Hourly rounding (assess needs \\T\\ fall precautionary measures) done. Abuse screen: Denies threats or abuse. Denies injuries from another. Nutritional screening: No deficits noted. Tuberculosis screening: No symptoms or risk factors identified. Assessment: 11:47 Reassessment: See triage assessment. nj 12:37 Reassessment: No changes from previously documented assessment. Patient denies pain at [facility] this time. 12:53 Reassessment: No changes from previously documented assessment. Patient is alert, bp oriented x 3, equal unlabored respirations, skin warm/dry/pink. 14:00 Reassessment: Patient appears in no apparent distress at this time. Patient and/or nj1 family updated on plan of care and expected duration. Pain level reassessed. Patient is alert, oriented x 3, equal unlabored respirations, skin warm/dry/pink. Patient denies pain at this time. 15:00 Reassessment: Patient appears in no apparent distress at this time. Patient is alert, nj1 oriented x 3, equal unlabored respirations, skin warm/dry/pink. 16:00 Reassessment: Patient appears in no apparent distress at this time. Patient and/or nj1 family updated on plan of care and expected duration. Pain level reassessed. Patient is alert, oriented x 3, equal unlabored respirations, skin warm/dry/pink. Patient denies pain at this time. Vital Signs: 11:25 BP 122 / 97; Pulse 72; Resp 18; Temp 98.3(O); Pulse Ox 98% on R/A; Weight 97.98 kg; ld1 Height 5 ft. 10 in. ; Pain 0/10; 12:37 BP 94 / 55; Pulse 61; Resp 18; Pulse Ox 96% on R/A; Pain 0/10; nj1 12:52 BP 94 / 55; Pulse 60; Resp 16; Pulse Ox 94% ; bp 14:00 BP 137 / 67; Pulse 74; Resp 19; Pulse Ox 95% on R/A; nj1 15:00 BP 141 / 58; Pulse 53; Resp 16; Pulse Ox 97% on R/A; nj1 16:00 BP 141 / 62; Pulse 55; Resp 17; Pulse Ox 96% on R/A; Pain 0/10; nj1 11:25 Body Mass Index 30.99 (97.98 kg, 177.8 cm) ld1 11:25 Pain Scale: Adult ld1 12:37 Pain Scale: Adult nj1 16:00 Pain Scale: Adult nj1 ED Course: 11:21 Patient arrived in ED. rg4 11:23 Taj Bowie MD is Attending Physician. rn 11:26 Triage completed. ld1 11:26 Arm band placed on right wrist. ld1 11:31 Cleopatra Gomez, KENNY is Primary Nurse. nj1 11:45 Inserted saline lock: 20 gauge in right forearm, using aseptic technique. Blood nj1 collected. 11:49 Patient has correct armband on for positive identification. Bed in low position. Call [facility] light in reach. 12:22 CT Abd/Pelvis - IV Contrast Only In Process Unspecified. EDMS 12:55 Dieter Ellis MD is Hospitalizing Provider. rn 17:18 No provider procedures requiring assistance completed. Patient admitted, IV remains in [facility] place. Administered Medications: 13:09 Drug: NS 0.9% IV 500 ml Route: IV; Rate: bolus; Site: right forearm; [facility] 14:00 Follow up: Response: No adverse reaction; IV Status: Completed infusion; IV Intake: nj1 500ml Medication: 17:18 VIS not applicable for this client. nj1 Intake: 14:00 IV: 500ml; Total: 500ml. nj Outcome: 12:55 Decision to Hospitalize by Provider. rn 17:14 Admitted to Tele accompanied by nurse, via wheelchair, room 425, Report called to [facility] Nurse Margaret 17:14 Condition: stable 17:14 Instructed on the need for admit. 17:40 Patient left the ED. [facility] Signatures: Dispatcher [employer] EDMS Taj Bowie MD MD rn Garcia, Rubi rg4 London Henry, RN RN Marine Urbina RN RN ld1 Cleopatra Gomez RN RN nj1
--- NOTE | 2023-03-18 12:56 | EDPHYS ---
Physician Documentation [facility] Name: Marcell Coy Age: 82 yrs Sex: Male : 1940 Arrival Date: 03/18/2023 Time: 11:19 Bed 2 Private MD: ED Physician Taj Bowie HPI: 03/18 11:41 This 82 yrs old Male presents to ER via Ambulatory with complaints of Bloody Stools. rn 11:41 The patient presents to the emergency department with rectal bleeding, a moderate rn amount, bright red blood with bowel movement, with multiple such episodes. Onset: The symptoms/episode began/occurred 1 week(s) ago. Abdominal pain: described as achy, intermittent, located in the right lower quadrant, that does not radiate. Modifying factors: The symptoms are alleviated by nothing, the symptoms are aggravated by nothing. Associated signs and symptoms: Pertinent negatives: chest pain, fever, shortness of breath. Severity of symptoms: At their worst the symptoms were mild in the emergency department the symptoms are unchanged. The patient has experienced a previous episode. The patient has been recently seen by a physician:. Pt reports rectal bleeding for 1 week, admitted to [facility] for 4 days, bleeding seemed to stop, so sent home without colonoscopy, takes xarelto, and reports bleeding started again. Has hx of hemorrhoids, but states blood in stool with clots. Denies sob. Reports mild RLQ abd pain.. Historical: - Allergies: 11: No Known Allergies; ld1 - Home Meds: 13:15 Xarelto 20 mg oral tablet 1 tab daily [Active]; hydrochlorothiazide 12.5 mg Oral tablet nj1 1 tabs daily [Active]; lisinopril 10 mg Oral tablet 1 tabs daily [Active]; metoprolol tartrate 100 mg Oral tablet 1 tab 2 times per day [Active]; atorvastatin 40 mg oral tablet 1 tab every day at bedtime [Active]; cilostazol 100 mg oral tablet 1 tab 2 times per day [Active]; - PMHx: 11: "bad veins in legs"; Hypertensive disorder; ld1 - PSHx: : Appendectomy; ld1 - Immunization history:: Adult Immunizations up to date, Client reports receiving the 2nd dose of the Covid vaccine. - Social history:: Smoking status: Patient denies any tobacco usage or history of. Patient/guardian denies using alcohol. - Family history:: not pertinent. - Hospitalizations: : No recent hospitalization is reported. ROS: 11:41 Constitutional: Negative for fever, chills, and weight loss, Cardiovascular: Negative rn for chest pain, palpitations, and edema, Respiratory: Negative for shortness of breath, cough, wheezing, and pleuritic chest pain, Abdomen/GI: + abd pain and bloody stool MS/Extremity: Negative for injury and deformity, Skin: Negative for injury, rash, and discoloration, Neuro: Negative for headache, weakness, numbness, tingling, and seizure. Exam: 11:41 Constitutional: This is a well developed, well nourished patient who is awake, alert, rn and in no acute distress. Able to undress himself and get into bed himself without assistance. Eyes: Normal conjunctivae Cardiovascular: Regular rate and rhythm with a normal S1 and S2. No gallops, murmurs, or rubs. Normal PMI, no JVD. No pulse deficits. Respiratory: Lungs have equal breath sounds bilaterally, clear to auscultation and percussion. No rales, rhonchi or wheezes noted. No increased work of breathing, no retractions or nasal flaring. Abdomen/GI: no focal abd tenderness, no rebound, no distension Skin: Warm, dry MS/ Extremity: Pulses equal, no cyanosis Neuro: Awake and alert, GCS 15 Vital Signs: 11:25 BP 122 / 97; Pulse 72; Resp 18; Temp 98.3(O); Pulse Ox 98% on R/A; Weight 97.98 kg; ld1 Height 5 ft. 10 in. ; Pain 0/10; 12:37 BP 94 / 55; Pulse 61; Resp 18; Pulse Ox 96% on R/A; Pain 0/10; nj1 12:52 BP 94 / 55; Pulse 60; Resp 16; Pulse Ox 94% ; bp 14:00 BP 137 / 67; Pulse 74; Resp 19; Pulse Ox 95% on R/A; nj1 15:00 BP 141 / 58; Pulse 53; Resp 16; Pulse Ox 97% on R/A; nj1 16:00 BP 141 / 62; Pulse 55; Resp 17; Pulse Ox 96% on R/A; Pain 0/10; nj1 11:25 Body Mass Index 30.99 (97.98 kg, 177.8 cm) ld1 11:25 Pain Scale: Adult ld1 12:37 Pain Scale: Adult nj1 16:00 Pain Scale: Adult nj1 MDM: 11:23 Patient medically screened. rn 12:52 Differential diagnosis: hemorrhoids, internal hemorrhoids, colitis, diverticulosis. rn Data reviewed: vital signs, nurses notes, lab test result(s), radiologic studies, CT scan, and as a result, I will admit patient. Management of patient was discussed with the following: Hospitalist: . Counseling: I had a detailed discussion with the patient and/or guardian regarding: the historical points, exam findings, and any diagnostic results supporting the discharge/admit diagnosis, lab results, radiology results, the need for further work-up and treatment in the hospital. 03/18 11:40 Order name: CBC with Diff; Complete Time: 12:28 rn 03/18 11:40 Order name: CMP; Complete Time: 12:28 rn 03/18 11:40 Order name: Lipase; Complete Time: 12:28 rn 03/18 11:40 Order name: Protime (+inr); Complete Time: 12:28 rn 03/18 11:40 Order name: Ptt, Activated; Complete Time: 12:28 rn 03/18 12:56 Order name: Type And Screen; Complete Time: 14:08 rn 03/18 15:19 Order name: Magnesium EDMS 03/18 15:19 Order name: Phosphorus EDMS 03/18 15:19 Order name: Protime (+INR) EDMS 03/18 15:19 Order name: Urinalysis w/ reflexes EDMS 03/18 15:19 Order name: CBC with Automated Diff EDMS 03/18 15:19 Order name: CBC with Automated Diff EDMS 03/18 15:19 Order name: Comprehensive Metabolic Panel EDMS 03/18 15:19 Order name: Comprehensive Metabolic Panel EDMS 03/18 15:24 Order name: Hematocrit EDMS / 15:24 Order name: Hematocrit EDMS 03/18 15:24 Order name: Hematocrit EDMS 03/18 15:24 Order name: Hemoglobin EDMS 03/18 15:24 Order name: Hemoglobin EDMS / 15:24 Order name: Hemoglobin EDMS 07 15:24 Order name: Hemoglobin EDMS 03/18 11:40 Order name: CT Abd/Pelvis - IV Contrast Only; Complete Time: 12:41 rn 03/18 15:14 Order name: NPO EDTX 03/18 15:19 Order name: CONS Physician Consult [facility] 03/18 11:40 Order name: IV Saline Lock; Complete Time: 11:47 rn 03/18 11:40 Order name: Labs collected and sent; Complete Time: 11:47 rn Administered Medications: 13:09 Drug: NS 0.9% IV 500 ml Route: IV; Rate: bolus; Site: right forearm; nj1 14:00 Follow up: Response: No adverse reaction; IV Status: Completed infusion; IV Intake: nj1 500ml Disposition Summary: 03/18/23 12:55 Hospitalization Ordered Hospitalization Status: Inpatient Admission rn Provider: Dieter Ellis rn Location: Telemetry/[facility] (Inpatient) rn Condition: Stable rn Problem: new rn Symptoms: are unchanged rn Bed/Room Type: Standard rn Room Assignment: 425(03/18/23 16:27) eb Diagnosis - GI Bleed/ Gastrointestinal hemorrhage, unspecified rn - Anemia, unspecified rn Forms: - Medication Reconciliation Form rn - SBAR form rn Signatures: Dispatcher [employer] Taj Solorzano MD MD rn Botello, Elizabeth eb Sims, Lauren RN RN ld1 Cleopatra Gomez RN RN nj1 Corrections: (The following items were deleted from the chart) 16:27 12:55 rn eb
[2023-03-18] MEDS ORDERED: NA CHLORIDE 0.9% 500 ML ONE (13:14)
[2023-03-18] MEDS ORDERED: ACETAMINOPHEN 325 MG TABLET PO PRN (15:11)
[2023-03-18] MEDS ORDERED: SODIUM CHLORIDE 0.9% 10ML INJ IV PRN (15:13)
[2023-03-18] MEDS ORDERED: ONDANSETRON 4 MG/2 ML VIAL IV PRN (15:16)
--- NOTE | 2023-03-18 15:24 | P.HP ---
Certification for Inpatient Patient admitted to: Observation With expected LOS: <2 Midnights Patient will require the following post-hospital care: None Practitioner: I am a practitioner with admitting privileges, knowledge of patient current condition, hospital course, and medical plan of care. Services: Services provided to patient in accordance with Admission requirements found in Title 42 Section 412.3 of the Code of Federal Regulations Patient History Date of Service: 03/18/23 Reason for admission: Rectal bleeding History of Present Illness: Patient is an 82-year-old male with a past medical history significant for DVT, varicose veins, hypertension, hyperlipidemia who presents with complaint of rectal bleeding that has been ongoing for the past 8 days. Patient reported that he was seen at [facility] 5 days ago. Patient reported that he was seen by cemetery manager who initially wanted to do an upper GI and colonoscopy but change your mind due to stable hemoglobin and resolution of GI bleeding. Patient was instructed to follow-up with GI. Patient was subsequently discharged from the hospital 2 days ago. Patient reported on getting home when he went to use the bathroom, patient started experiencing rectal bleeding and noticed a significant amount of blood clots. Patient reported that he has been bleeding every time he used the bathroom. Patient also reports right lower quadrant abdominal pain that has been intermittent. Patient rated pain as 8/10 in severity and described pain as aching in quality. Patient reported associated signs and symptoms of dizziness and diaphoresis. Patient denies any other signs and symptoms. Symptoms are aggravated or relieved by nothing. Patient decided to present to the hospital for medical evaluation. Allergies No Known Allergies Allergy (Unverified 11/25/21 07:49) Home Medications: Atorvastatin Calcium [Lipitor] 40 mg PO BEDTIME 11/25/21 Lisinopril/Hydrochlorothiazide [Lisinopril-Hctz 10-12.5 mg Tab] 1 tab PO DAILY 11/25/21 Metoprolol Tartrate [Lopressor] 100 mg PO BID 11/25/21 Rivaroxaban [Xarelto] 20 mg PO DAILY 11/25/21 cilostazoL [Pletal*] 100 mg PO BID 11/25/21 - Past Medical/Surgical History Diabetic: No -: Hypertension -: Venous Insufficiency -: Hyperlipidemia -: Appendectomy -: Back Surgery Psychosocial/ Personal History: Patient lives at home with his niece and nephew. - Family History Mother -: Stroke Father -: Lung disease Brother -: Heart disease, Lung disease, Cancer - Social History Smoking Status: Never smoker Alcohol use: Yes CD- Drugs: No Caffeine use: Yes Place of Residence: Home Review of Systems General: Sweats Eyes: Unremarkable ENT: Unremarkable Respiratory: Unremarkable Cardiovascular: Unremarkable Gastrointestinal: Abdominal Pain, Melena Genitourinary: Unremarkable Musculoskeletal: Unremarkable Integumentary: Unremarkable Neurological: Other (Dizziness ) Lymphatics: Unremarkable Physical Examination - Physical Exam General: Alert, In no apparent distress, Oriented x3, Cooperative HEENT: Atraumatic, PERRLA, Mucous membr. moist/pink, EOMI, Sclerae nonicteric Neck: Supple, 2+ carotid pulse no bruit, No LAD, Without JVD or thyroid abnormality Respiratory: Clear to auscultation bilaterally, Normal air movement Cardiovascular: No edema, Regular rate/rhythm, Normal S1 S2 Capillary refill: <2 Seconds Gastrointestinal: Normal bowel sounds, Tenderness Musculoskeletal: No clubbing, No swelling, No tenderness Integumentary: No rashes, No significant lesion, No tenderness/swelling Neurological: Normal speech, Normal tone, Normal affect Lymphatics: No axilla or inguinal lymphadenopathy - Studies Laboratory Data (last 24 hrs) 03/18/23 11:45: PT 23.3 H, INR 2.12, APTT 46.5 H 03/18/23 11:45: Sodium 138, Potassium 4.5, BUN 33 H, Creatinine 1.37 H, Glucose 96, Total Bilirubin 0.3, AST 18, ALT 21, Alkaline Phosphatase 72, Lipase 48 03/18/23 11:45: WBC 4.30, Hgb 9.8 L, Hct 30.6 L, Plt Count 198 Assessment and Plan - Plan --Gastrointestinal bleeding patient made NPO. Patient placed on Protonix. Gastroenterology consulted. H&H stable. We will continue to monitor hemoglobin and transfuse if less than 7.0. We will keep patient n.p.o. and continue IV hydration. Further management per cemetery manager -- Hx of DVT. We will hold off on Xarelto due to GI bleed. Continue SCDs for DVT prophylaxis. --Hypertension. Unstable. We will manage BP with hydralazine as needed. --History of venous insufficiency. Continue supportive care. --Hyperlipidemia. Continue statin when appropriate. --History of infrarenal abdominal aortic aneurysm. We will keep blood pressure controlled. Continue aspirin when appropriate. --CKD 3A. Stable. We will continue to monitor renal functions. -- DVT prophylaxis with SCDs. Discharge Plan: Home Plan to discharge in: 48 Hours - Advance Directives Does patient have a Living Will: Yes Does patient have a Durable POA for Healthcare: Yes - Code Status/Comfort Care Code Status Assessed: Yes Physician Review: Patient Assessed, Agree with Above Assessment and Plan Critical Care: No
[2023-03-18] MEDS ORDERED: GOLYTELY 4000 ML PO SCH (17:00)
[2023-03-18] MEDS: PANTOPRAZOLE 40 MG INJ IVP SCH ×2 (17:48→19:43)
[2023-03-18] MEDS: D5 0.45 NS 1,000 ML IV SCH (17:48)
[2023-03-18 18:00] VITALS: BMI 30.9
[2023-03-18] MEDS ORDERED: HYDRALAZINE HCL 20 MG/ML VIAL IV PRN (18:00)
[2023-03-18 18:45] LABS: Hematocrit 31.3 % (39.6-49.0)
[2023-03-18 18:46] LABS: Protime INR 1.75
[2023-03-18 18:54] LABS: Magnesium 2.2 mg/dL (1.6-2.4); Phosphorus 3.2 mg/dL (2.5-4.9)
[2023-03-18 21:52] LABS: Hematocrit 33.8 % (39.6-49.0)
[2023-03-19 04:10] LABS: Hematocrit 28.6 % (39.6-49.0); Lymphocytes % 27.9 % (15.3-44.8); MCV 87.1 fL (80-100); MPV 6.9 fL (7.6-11.3); RBC Red Blood Cell Count 3.29 M/uL (4.33-5.43)
[2023-03-19 04:21] LABS: Albumin 3.3 g/dL (3.4-5.0); Bilirubin Total 0.4 mg/dL (0.2-1.0); Potassium 3.8 mEq/L (3.5-5.1); Protein, Total 6.5 g/dL (6.4-8.2)
[2023-03-19] MEDS: D5 0.45 NS 1,000 ML IV SCH (06:07)
[2023-03-19] MEDS ORDERED: Ringers Lactate 1,000 ML IV ONE (08:53)
[2023-03-19] MEDS ORDERED: KCL 20 MEQ/100 mL IVPB 20 MEQ/100 ML BAG IV SCH (09:00)
[2023-03-19] MEDS ORDERED: propofoL 200 MG/20 ML VIAL IV ONE (09:17)
[2023-03-19] MEDS ORDERED: LIDOCAINE 1% MPF 2 ML AMPULE ONE (09:17)
[2023-03-19 10:29] VITALS: O2SAT 97
[2023-03-19] MEDS: PANTOPRAZOLE 40 MG INJ IVP SCH ×2 (10:44→20:53)
--- NOTE | 2023-03-19 11:13 | P.PN ---
Subjective Date of Service: 03/19/23 Chief Complaint: Rectal bleeding He was seen this morning on rounds following his colonoscopy. Per Dr. 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 Additionally, it revealed large internal and external hemorrhoids. He recommended a surgical consultation. Mr. Coy denies any chest pain, palpitations, shortness of breath, or abdominal pain. Review of Systems 10-point ROS is otherwise unremarkable Gastrointestinal: Hematochezia Physical Examination - Vital Signs Temperature: 97 F Blood Pressure: 163/73 Pulse: 66 Respirations: 16 Pulse Ox (%): 92 - Physical Exam General: Alert, In no apparent distress, Oriented x3 HEENT: Atraumatic, Mucous membr. moist/pink, Sclerae nonicteric Neck: JVD not distended Respiratory: Clear to auscultation bilaterally, Normal air movement Cardiovascular: No edema, Regular rate/rhythm, Normal S1 S2, No gallops, No rubs, No murmurs Gastrointestinal: Normal bowel sounds, Soft and benign, Non-distended, No tenderness, No rebound, No guarding Musculoskeletal: No clubbing Integumentary: No rashes Neurological: Normal speech, Normal affect - Studies Laboratory Data (last 24 hrs) 03/18/23 11:45: PT 23.3 H, INR 2.12, APTT 46.5 H 03/18/23 11:45: Sodium 138, Potassium 4.5, BUN 33 H, Creatinine 1.37 H, Glucose 96, Total Bilirubin 0.3, AST 18, ALT 21, Alkaline Phosphatase 72, Lipase 48 03/18/23 11:45: WBC 4.30, Hgb 9.8 L, Hct 30.6 L, Plt Count 198 Assessment And Plan - Plan # Acute Blood Loss Anemia likely due to Acute Lower Gastrointestinal Bleed from Colonic AVM and Large Internal/External Hemorrhoids - Consulted Gastroenterology and spoke with Dr. Reynolds - recommendations appreciated - S/P colonoscopy earlier today. Per Dr. Reynolds, there a small AVM that was ablated. He also had large internal/external hemorrhoids, for which he recommended a surgical consultation - Consulted General Surgery and spoke with Dr. Singer - recommendations appreciated - Serial H&H - Transfuse for Hgb < 7.0 - 2 large bore IVs # History of Deep Venous Thrombosis on Rivaroxaban # History of Infrarenal Abdominal Aortic Aneurysm # Hypertension # Dyslipidemia - Hold home rivaroxaban - Resume home medications when able Dieter Ellis M.D.
[2023-03-19 12:50] LABS: Hematocrit 29.1 % (39.6-49.0)
[2023-03-19 18:19] LABS: Hematocrit 30.4 % (39.6-49.0)
[2023-03-19 20:39] LABS: Specific Gravity 1.008 (1.005-1.030); Urine Bilirubin NEGATIVE (Negative); Urine Blood Negative (Negative); Urine Clarity Clear (Clear); Urine Color Colorless (Yellow); Urine Glucose NEGATIVE (Negative); Urine Protein NEGATIVE (Negative); Urine Urobilinogen Normal (Normal)
[2023-03-20 00:53] LABS: Hematocrit 28.3 % (39.6-49.0)
[2023-03-20 04:04] LABS: Absolute Lymphocytes (CBC) 1.1 K/uL (0.7-4.9); Hematocrit 28.4 % (39.6-49.0); Lymphocytes % 30.7 % (15.3-44.8); MCV 86.2 fL (80-100); MPV 6.7 fL (7.6-11.3); RBC Red Blood Cell Count 3.29 M/uL (4.33-5.43)
[2023-03-20 04:21] LABS: Potassium 4.3 mEq/L (3.5-5.1)
--- NOTE | 2023-03-20 08:35 | P.DS ---
Admission Date: 03/18/23 Discharge Date: 03/20/23 Disposition: ROUTINE DISCHARGE Discharge Condition: GOOD Reason for Admission: Rectal bleeding Consultations: 1. Gastroenterology Procedures: - 03/19/2023 - Colonscopy Hospital Course: DIAGNOSES: # Acute Blood Loss Anemia likely due to Acute Lower Gastrointestinal Bleed from Colonic AVM and Large Internal/External Hemorrhoids # History of Deep Venous Thrombosis on Rivaroxaban # History of Infrarenal Abdominal Aortic Aneurysm with Known Mural Thrombosis on Rivaroxaban # Hypertension # Dyslipidemia # Bilateral Renal Cysts HOSPITAL COURSE: Mr. Marcell Coy is a pleasant 82 year old male with a past medical history significant for deep venous thrombosis/aortic mural thrombosis on rivaroxaban, hypertension, dyslipidemia who was admitted to the [facility] on 03/18/2023 for hematochezia. He was admitted to the Medicine service. Upon further evaluation, he was found to have acute blood loss anemia due to a lower gastrointestinal bleed. Gastroenterology was consulted and he was evaluated by Dr. Reynolds. On 03/19/2023, he underwent a colonoscopy. Per Dr. Reynolds, he found a small arteriovenous malformation, which was ablated. He also noted large internal and external hemorrhoids, for which he recommended a surgical consultation. General Surgery was consulted and he was evaluated by Dr. Singer. Dr. Singer has recommended outpatient follow-up for possible hemorrhoidectomy. Dr. Reynolds has cleared him for discharge home and recommended that he hold his rivaroxaban un til 03/23/2023. Since the procedure, he denies any recurrent episodes of hematochezia. His hemoglobins have been stable. He states that he feels well and would like to be discharged home. On 03/20/2023, he was seen on morning rounds and deemed medically stable for discharge. He was discharged with instructions to schedule follow-up appointments with his PCP (JOSEF Palacios), with Gastroenterology (Dr. Reynolds), with General Surgery (Dr. Singer), and with Cardiology (Dr. Velez). He was given the opportunity to ask questions and reported no further questions. Furthermore, all questions were answered to the best of my ability. A copy of this discharge summary will be sent to the above providers to facilitate continuity of care. Today, I personally spent 25 minutes on his case, of which greater than 50% of the time was spent in patient education, counseling, and coordination of care as described above. - Physical Exam General: Alert, In no apparent distress, Oriented x3 HEENT: Atraumatic, Mucous membr. moist/pink, Sclerae nonicteric Neck: JVD not distended Respiratory: Clear to auscultation bilaterally, Normal air movement Cardiovascular: No edema, Regular rate/rhythm, No murmurs Gastrointestinal: Normal bowel sounds, Soft, Non-distended, No tenderness Musculoskeletal: No clubbing Integumentary: No rashes Neurological: Normal speech, Normal affect Vital Signs/Physical Exam: Temp Pulse Resp BP Pulse Ox 98.3 F 84 18 158/75 H 94 03/20/23 04:00 03/20/23 04:00 03/20/23 04:00 03/20/23 04:00 03/20/23 04:00 Laboratory Data at Discharge: WBC 3.40 thou/uL (4.3-10.9) L 03/20/23 03:48 Hgb 9.3 g/dL (13.6-17.9) L 03/20/23 03:48 Hct 28.4 % (39.6-49.0) L 03/20/23 03:48 Plt Count 159 thou/uL (152-406) 03/20/23 03:48 PT 19.3 SECONDS (9.5-12.5) H 03/18/23 18:30 INR 1.75 03/18/23 18:30 APTT 46.5 SECONDS (24.3-36.9) H 03/18/23 11:45 Sodium 137 mEq/L (136-145) 03/20/23 03:48 Potassium 4.3 mEq/L (3.5-5.1) D 03/20/23 03:48 BUN 21 mg/dL (7-18) H 03/20/23 03:48 Creatinine 1.14 mg/dL (0.70-1.30) 03/20/23 03:48 Glucose 95 mg/dL (74-106) 03/20/23 03:48 Phosphorus 3.2 mg/dL (2.5-4.9) 03/18/23 18:30 Magnesium 2.2 mg/dL (1.6-2.4) 03/18/23 18:30 Total Bilirubin 0.4 mg/dL (0.2-1.0) 03/19/23 03:48 AST 18 U/L (15-37) 03/19/23 03:48 ALT 18 U/L (16-61) 03/19/23 03:48 Alkaline Phosphatase 67 U/L (45-117) 03/19/23 03:48 Lipase 48 U/L (13-75) 03/18/23 11:45 Home Medications: Atorvastatin Calcium [Lipitor] 40 mg PO BEDTIME 11/25/21 Metoprolol Tartrate [Lopressor] 100 mg PO BID 11/25/21 Rivaroxaban [Xarelto] 20 mg PO DAILY 11/25/21 cilostazoL [Pletal*] 100 mg PO BID 11/25/21 Cholecalciferol (Vitamin D3) [Vitamin D3] 50 mcg PO DAILY 03/18/23 Dextran/Hypromellose/Glycerin [Genteal Tears 0.1%-0.2%-0.3%] 1 drop OPTH BEDTIME 03/18/23 Lisinopril/Hydrochlorothiazide [Lisinopril-Hctz 10-12.5 mg Tab] 1 tab PO DAILY 03/18/23 Physician Discharge Instructions: 1. Please call and schedule a follow-up appointment with your PCP (JOSEF Palacios) in 3-5 days - You were found to have cysts on both of your kidneys. Please discuss with your PCP 2. Please call and schedule a follow-up appointment with Cardiology (Dr. Velez) in 3-5 days - As you know, you have an anuerysm in your aorta as well as a blood clot. Please discuss with your Cable Television Technician. 3. Please call and schedule a follow-up appointment with Gastroenterology (Dr. Reynolds) in 3-5 days - Per Dr. Reynolds, please hold your Xarelto for now. He recommends re- starting the medication on 03/23/2023 4. Please call and schedule a follow-up appointment with General Surgery (Dr. Singer) in 5-7 days - You may need a surgery to fix your hemorrhoids Diet: [facility] Activity: Ad ari Followup: Lexi Palacios NP [Primary Care Provider] - Jareth Velez MD [ACTIVE - CAN ADMIT] - Girish Singer MD [ACTIVE - CAN ADMIT] - Austyn Reynolds MD [OUTSIDE PHYSICIAN] - Time spent managing pt's care (in minutes): 25
[2023-03-20] MEDS: PANTOPRAZOLE 40 MG INJ IVP SCH (08:36)
[2023-03-20 09:00] VITALS: BP 180/88; TEMP 98.8
== END 2023-03-20 10:02 | disposition home or self-care (01) | DRG 378 ==
LOC: ER 11:19 → ERHOLD 15:11 → 4TH 17:32
PROVIDERS: ADMIT Internal Medicine; ATTEND Internal Medicine
PROC: 0DJD8ZZ Inspection of Lower Intestinal Tract, Via Natural or Artificial Opening Endoscopic (ICD-10-PCS; principal; 2023-03-19 09:00)
DX: K55.21 Angiodysplasia of colon with hemorrhage (principal); D62 Acute posthemorrhagic anemia; E78.5 Hyperlipidemia, unspecified; I12.9 Hypertensive chronic kidney disease with stage 1 through stage 4 chronic kidney disease, or unspecified chronic kidney disease; N18.31 Chronic kidney disease, stage 3a; K64.8 Other hemorrhoids; N28.1 Cyst of kidney, acquired; K64.4 Residual hemorrhoidal skin tags; K57.31 Diverticulosis of large intestine without perforation or abscess with bleeding; Z79.02 Long term (current) use of antithrombotics/antiplatelets; Z79.01 Long term (current) use of anticoagulants; Z90.49 Acquired absence of other specified parts of digestive tract; Z79.899 Other long term (current) drug therapy; Z86.718 Personal history of other venous thrombosis and embolism
CPT/HCPCS: 36415; 74177; 80048; 80053; 81003; 83690; 83735; 84100; 85014; 85018; 85025; 85610; 85730; 86850; 86900; 86901; 96360; 99285; C9113; J0360; J2405; J2704; J3480; J7040; J7120; J7799; Q9967

== ENCOUNTER 2023-05-13 05:59 | Day surgery (SDC) | payer OTHER ==
[2023-05-13 06:27] LABS: Absolute Lymphocytes (CBC) 1.6 K/uL (0.7-4.9); Hematocrit 33.9 % (39.6-49.0); Lymphocytes % 29.2 % (15.3-44.8); MCV 82.8 fL (80-100); MPV 6.5 fL (7.6-11.3); Platelets 193 thou/uL (152-406)
[2023-05-13 06:42] LABS: Potassium 4.3 mEq/L (3.5-5.1)
[2023-05-13] MEDS ORDERED: Ringers Lactate 1,000 ML IV ONE (06:58)
[2023-05-13] MEDS: CEFAZOLIN SODIUM 1 GM/VIAL ONE ×2 (08:14→08:21)
[2023-05-13] MEDS ORDERED: SUGAMMADEX SODIUM 200 MG/2 ML VIAL IV ONE (08:19)
[2023-05-13] MEDS ORDERED: SUCCINYLCHOLINE 20 MG/ML (10 ML) IV ONE (08:19)
[2023-05-13] MEDS ORDERED: propofoL 200 MG/20 ML VIAL IV ONE (08:21)
[2023-05-13] MEDS ORDERED: FENTANYL CITR 100 MCG/2 ML ONE (08:21)
[2023-05-13] MEDS ORDERED: LIDOCAINE 2% MPF 5 ML VIAL ONE (08:21)
[2023-05-13] MEDS ORDERED: ROCURONIUM 50 MG/5 ML VIAL IV ONE (08:21)
[2023-05-13] MEDS ORDERED: GLYCOPYRROLATE 0.2 MG/ML SYR ONE ×2 (08:33→08:56)
[2023-05-13] MEDS ORDERED: ONDANSETRON 4 MG/2 ML VIAL ONE (08:41)
[2023-05-13] MEDS ORDERED: dexAMETHasone 4 MG/ML VIAL ONE (08:41)
[2023-05-13] MEDS ORDERED: EPHEDRINE SULF 50 MG/ML VIAL ONE (08:45)
[2023-05-13] MEDS ORDERED: NEOSTIGMINE 1 MG/ML -10 ML VIAL ONE (08:57)
--- NOTE | 2023-05-13 08:58 | P.BOP ---
Preoperative diagnosis: bleeding prolapsed hemorrhoids Postoperative diagnosis: same, int/ext large circunferential hemorrhoids, mild rectal prolapse Primary procedure: EUA, Anoscopy, rigid proctoscopy external hemmorrhoidectomy Estimated blood loss: <10cc Specimen: hemorrhoid Findings: see dicta Anesthesia: General Complications: None Drain(s): Other (surgicell) Transferred to: Recovery Room Condition: Good
[2023-05-13 09:38] VITALS: TEMP 96.4; O2SAT 97
[2023-05-13 10:03] VITALS: BP 158/71
--- NOTE | 2023-05-13 19:06 | DS ---
Date of Discharge: 05/13/2023 Diagnosis: Bleeding prolapsed hemorrhoid, internal and external large circumferential hemorrhoids an d mild rectal prolapse. Procedures: EUA, anoscopy, rigid proctoscopy, external hemorrhoidectomy. Disposition: Home. Activity: As tolerated. No heavy lifting. Plan: Follow up in my office in 1 week. Call for appointment at [phone]. Sitz baths 3 times a day and every bowel movement. The patient advised to avoid constipation and start taking stool softener s [id number]. GAGANDEEP/VIANCA Voice ID: [id number] Report ID: [id number]
--- NOTE | 2023-05-13 19:13 | OP ---
Date of Procedure: 05/13/2023 Surgeon: Tyshawn Gordon MD Preoperative Diagnosis: Bleeding prolapsed hemorrhoids. Postoperative Diagnoses: Bleeding prolapsed hemorrhoids, internal and external large circumferential hemorrhoids, also mild rectal prolapse. Procedures: EUA, anoscopy, rigid proctoscopy, external hemorrhoidectomy. Estimated Blood Loss: Less than 10 mL. Specimen: Hemorrhoids. Findings: The patient has large internal and external hemorrhoids, too many to be removed at this mo ment. It is circumferential. They are prolapsed, internal and external. There is also some part of the rectum that prolapsed noted I believe contributing to the way this look. There is 1 hemorrhoid that is bleeding and at this moment we are going to address that issue since the patient has some blo od thinners and is not allowing him to go back on blood thinners, but after evaluating and seeing thi s patient, obviously with the help of anesthesia and examination under anesthesia, we were able to un derstand a little better the anatomy and physiology in that area and basically may warrant more than one surgical intervention probably with the Colorectal Specialty. Anesthesia: General plus local. Indication: This is the case of an 82-year-old patient, who comes to us with rectal bleeding, sent t o us after previously had a colonoscopy and found to have large hemorrhoids, one of them is bleeding. The benefits, alternatives, and risks of EUA, anoscopy, proctoscopy, hemorrhoidectomy were fully ex plained, which include, but not limited to infection, bleeding, damage to adjacent structures, anesth esia complication, recurrence, KS, and even . He also understands this may not relieve any symp toms. He might need more than one surgical intervention. He was also explained the pathophysiology of hemorrhoids and how can we avoid making them worse. At this moment, even though we are controllin g this bleeding because he has to be back on his blood thinner, he still may need to have the Special ty of Colorectal to see him electively. Unfortunately, they are not know what in this area. He is t o travel 1 hour to [place] to find one of them, but I believe it is worthy and obviously with the fin rené that we have at this moment under examination anesthesia. He understood. Procedure In Detail: The patient was brought to the operating room, placed in supine position. Anes thesia was done without complication. The patient was placed in lithotomy position with proper prote ction. A time-out was called. Rectal examination was done followed by rigid proctoscopy all the way to about 15 cm and we noticed very large internal and external hemorrhoids with a little bit of rect al prolapse component into it. We identified the hemorrhoid that is bleeding at this moment. We can not tell if this is only the hemorrhoidal bleed all the time, but at least right now very suspicious of being the one, so we put an anoscope with a window on the side. This allowed me to see the anal c anal little better, identified the hemorrhoid, opened the anoderm, the hemorrhoids and olivo sected that area with a Harmonic Scalpel. I then closed the anoderm with a 3-0 chromic. The patient tolerated the procedure well. The rest of the hemorrhoids is going to have to be addressed with a c olorectal surgeon and may require extensive surgery in that region. The patient tolerated the proced ure well. No bleeding. Surgicel placed over that area. Previously, local anesthetic was applied. The patient was sent to recovery in stable condition. GAGANDEEP/VIANCA Voice ID: [id number] Report ID: [id number]
== END 2023-05-13 10:15 | disposition home or self-care (01) ==
LOC: PRE 05:59 → OR 10:15
PROVIDERS: ATTEND Surgery
PROC: 0DJD8ZZ Inspection of Lower Intestinal Tract, Via Natural or Artificial Opening Endoscopic (ICD-10-PCS; 2023-05-13)
PROC: 06BY0ZC Excision of Hemorrhoidal Plexus, Open Approach (ICD-10-PCS; principal; 2023-05-13 08:15)
DX: K64.4 Residual hemorrhoidal skin tags (principal); K62.3 Rectal prolapse; I10 Essential (primary) hypertension; Z86.718 Personal history of other venous thrombosis and embolism; I73.9 Peripheral vascular disease, unspecified
CPT/HCPCS: 45300; 46999; 85025; 80048; 36415; 88304; J2704; J1100; J2710; J2001; J3010; J2405; J7120; J0690

== ENCOUNTER 2023-06-22 10:41 | Day surgery (SDC) | payer OTHER ==
[2023-06-18 14:42] LABS: Potassium 4.1 mEq/L (3.5-5.1)
--- NOTE | 2023-06-19 12:23 | EKG ---
Test Date: 2023-06-18 Test Time: 13:41:20 Extraction Machine Operator: CALE MEASUREMENT RESULTS: Intervals: Rate: 56 TN: 218 QRSD: 90 QT: 426 QTc: 411 [place]: P: 80 TN: 218 QRS: 75 T: 82 INTERPRETIVE STATEMENTS: Sinus bradycardia with 1st degree AV block Otherwise normal ECG Compared to ECG 11/24/2021 23:25:06 No significant changes Electronically Signed On 06-19-23 12:20:42 CDT by Jareth Velez
[2023-06-22] MEDS ORDERED: TROPICAMIDE 1% OPTH 3 ML BOT ONE (11:17)
[2023-06-22] MEDS ORDERED: TETRACAINE HCL 0.5% 4ML OPTH ONE (11:18)
[2023-06-22] MEDS: NA CHLORIDE 0.9% 500 ML ONE ×2 (11:35→12:46)
[2023-06-22] MEDS: PHENYLEPHRINE 10% OPTH 5ML ONE ×3 (12:00→12:10)
[2023-06-22] MEDS: CYCLOPENTOLATE 1% OPTH 2 ML ONE ×3 (12:00→12:10)
[2023-06-22] MEDS ORDERED: LIDOCAINE 2% MPF 5 ML VIAL ONE ×2 (12:24→12:44)
[2023-06-22] MEDS ORDERED: propofoL 200 MG/20 ML VIAL IV ONE (12:24)
[2023-06-22] MEDS ORDERED: BSS OPTHALMIC SOL 15 ML OPTH ONE (12:26)
[2023-06-22] MEDS ORDERED: EPINEPHRINE/PF 1 MG/ML AMP ONE (12:27)
[2023-06-22] MEDS ORDERED: POVIDONE-IODINE 5% EYE DROPS ONE (12:27)
[2023-06-22] MEDS ORDERED: BALANCED SALT IRRIG PLAIN 500 ML IRR ONE (12:27)
[2023-06-22] MEDS ORDERED: DUOVISC 1 KIT OPTH ONE (12:28)
[2023-06-22] MEDS ORDERED: MOXIFLOXACIN HCL 10 DROPS/ML **OR USE OPTH ONE (12:34)
[2023-06-22] MEDS ORDERED: BUPIVACAINE 0.25% PF 10 ML VIAL ONE (12:44)
[2023-06-22] MEDS ORDERED: LIDOCAINE 1% MPF 2 ML AMPULE ONE (12:45)
[2023-06-22 14:06] VITALS: BP 191/83; TEMP 97; O2SAT 100
--- NOTE | 2023-06-22 22:45 | OP ---
Date of Procedure: 06/22/2023 Surgeon: Luz Desai MD Anesthesiologist: 1. Jen Coe CRNA. 2. Fili Rodríguez MD. Preoperative Diagnosis: Nuclear sclerotic cataract, OS (left eye). Operation Performed: Phacoemulsification with intraocular lens implant, left eye. Anesthesia: Monitored anesthesia care. Complications: None. Description Of Procedure: In the operative room, the patient was prepped with Betadine and draped. A conjunctival incision was made in the inferior nasal quadrant with Ra scissors. A sub-Tenon block consisting of a 1:1 mixture of 2% Xylocaine and 0.25% bupivacaine was placed through the conjunctival incision with a blunt cannula. A [place] balloon was placed over the eye for two minutes. The patient was prepped and draped in the usual sterile fashion for ophthalmic surgery. A lid speculum was placed in the left eye. Two paracentesis sites were made superiorly and inferiorly in the limbal cornea. Preservative free lidocaine then Viscoat were placed in the anterior chamber. A keratome was used to enter the anterior chamber nd a 360 degree capsulotomy was performed with utrata forceps. The lens was hydrodissected with BSS and rotated freely. The lens was removed with a stop and chop technique. 4.50 phaco CDE was used to remove the lens. Residual cortex was removed with the irrigation and aspiration. Provisc was placed in the capsular bag. A CCA0T0 +14.0 lens was placed in the capsular bag without complications. Irrigation and aspiration was used to remove residual viscoelastic. The paracentesis sites were hydrated with BSS. The wound and paracentesis sites were inspected and found to be watertight. Vigamox 0.07 cc was placed intracamerally at the end of the procedure. The eye was patched with a soft cotton patch and Lau metal shield. The patient was returned to day surgery in good condition. Comments: Discharge Instructions: Mr. Coy is discharged to home in good condition to follow up with Dr. Desai in the morning. GEORGINA/VIANCA Voice ID: [id number] Report ID: [id number]
== END 2023-06-22 14:24 | disposition home or self-care (01) ==
LOC: OR 10:41
PROVIDERS: ADMIT Ophthalmology Retina Specialist; ATTEND Ophthalmology Retina Specialist
PROC: 08RK3JZ Replacement of Left Lens with Synthetic Substitute, Percutaneous Approach (ICD-10-PCS; principal; 2023-06-22 12:00)
DX: H25.12 Age-related nuclear cataract, left eye (principal); I10 Essential (primary) hypertension; Z79.01 Long term (current) use of anticoagulants; Z79.899 Other long term (current) drug therapy; Z86.718 Personal history of other venous thrombosis and embolism
CPT/HCPCS: 36415; 80048; 93005; J0171; J2001; J2704; J7040